=== PATIENT | female | born 1940 | race Two or more races ===

== ENCOUNTER 2017-11-15 12:03 | Outpatient (CLI) | payer OTHER ==
[~2017-11-15 12:03] MED LIST: ABILIFY2 MG; AVALIDE 150-12.1 TA1 PO; AVELOX ABC PAC400 MG; AZOR 10/20 MG T1 TAB; BACTROBAN OINT22 GM TP; CALAN SR120 MG PO; CARDURA1 MG PO; CRESTOR5 MG PO; LOPRESSOR25 MG; NAPROSYN125 MG/5 M; PREDNISONE20 MG; SINGULAIR 4MG4 MG PO; [UNRECOGNIZED DRUG - OTHER]
== END 2017-11-15 12:09 | disposition home or self-care (01) ==
LOC: RAD 12:03
DX: M12.9 Arthropathy, unspecified (principal); M19.90 Unspecified osteoarthritis, unspecified site

== ENCOUNTER → 2018-01-26 | Emergency (ER) | payer OTHER ==
[~2018-01-26] VITALS: Ht 147.3 cm; Wt 63.5 kg
== END | disposition home or self-care (01) ==
LOC: ER 12:11
DX: R42 Dizziness and giddiness (principal); R11.11 Vomiting without nausea

== ENCOUNTER 2018-06-17 07:22 | Emergency (ER) | payer OTHER ==
[~2018-06-17] VITALS: Ht 149.9 cm; Wt 65.8 kg
[2018-06-17] MEDS ORDERED: XANAX0.25 MG PO (07:39)
[2018-06-17] MEDS ORDERED: ZANTAC150 M3 PO (07:39)
[2018-06-17] MEDS ORDERED: AZOR 10-20 MG1 EACH PO (07:39)
[2018-06-17] MEDS ORDERED: ALDACTONE25 MG PO (07:39)
[2018-06-17] MEDS ORDERED: HYDROCHLOROTHIA25 MG PO (07:39)
[2018-06-17] MEDS ORDERED: CARDURA1 MG PO (07:40)
[2018-06-17] MEDS ORDERED: LEVAQUIN500 MG PO ×2 (13:15)
[2018-06-17] MEDS ORDERED: XOPENEX0.63 MG/3 IH (13:15)
[2018-06-17] MEDS ORDERED: TUSSI PRES-B L120 M1 PO (13:15)
== END 2018-06-17 13:23 | disposition home or self-care (01) ==
LOC: ER 07:22
DX: B34.9 Viral infection, unspecified (principal); R05 Cough

== ENCOUNTER 2018-11-29 08:59 | Inpatient (IN) | payer OTHER ==
[~2018-11-29] VITALS: Ht 157.5 cm; Wt 70.8 kg
[~2018-11-29 08:59] MED LIST changes: +ALDACTONE25 MG PO; +AZOR 10-20 MG1 EACH PO; +HYDROCHLOROTHIA25 MG PO; +LEVAQUIN500 MG PO; +TUSSI PRES-B L120 M1 PO; +XANAX0.25 MG PO; +XOPENEX0.63 MG/3 IH; +ZANTAC150 M3 PO
--- NOTE | 2018-11-29 10:11 | NUR ---
PTE EVALUADA POR LA DRA [place]. MS K MENDEZ ORIENTA SOBRE EL MISMO, LO CUAL REFIERE ENTENDER Y REALIZAPRUEBAS DE LABORATORIO Y ADMINISTRA MEDICAMENTOS MADHURI ORDEN MEDICA Y SIGUIENDO MEDIDAS ASEPTICAS.
--- NOTE | 2018-11-29 10:50 | NUR ---
SE COLOCA PTE EN MONITOR CARDIACO Y SE CONECTA AL MISMO, MADHURI ORDEN MEDICA.
== END 2018-12-03 07:42 | disposition home or self-care (01) | DRG 194 ==
LOC: ER 08:59 → MEDI 13:24 → MEDJ 13:24 → SEC-K 13:24 → MEDI 16:46 → MEDJ 11-30 17:29
PROVIDERS: ADMIT Internal Medicine Cardiovascular Disease
PROC: 3E0F7GC Introduction of Other Therapeutic Substance into Respiratory Tract, Via Natural or Artificial Opening (ICD-10-PCS; principal; 2018-11-29)
PROC: BW28ZZZ Computerized Tomography (CT Scan) of Head (ICD-10-PCS; 2018-11-29)
DX: J18.1 Lobar pneumonia, unspecified organism (principal); J45.901 Unspecified asthma with (acute) exacerbation; D72.828 Other elevated white blood cell count; R55 Syncope and collapse; G30.8 Other Alzheimer's disease; F02.80 Dementia in other diseases classified elsewhere, unspecified severity, without behavioral disturbance, psychotic disturbance, mood disturbance, and anxiety; J44.9 Chronic obstructive pulmonary disease, unspecified; E11.9 Type 2 diabetes mellitus without complications; I10 Essential (primary) hypertension; I25.10 Atherosclerotic heart disease of native coronary artery without angina pectoris; Z86.73 Personal history of transient ischemic attack (TIA), and cerebral infarction without residual deficits; Z88.0 Allergy status to penicillin

== ENCOUNTER 2019-01-02 09:45 | Outpatient (CLI) | payer OTHER | END 2019-01-02 09:51 | disposition home or self-care (01) | LOC: RAD 09:45 | DX: R05 Cough (principal) ==

== ENCOUNTER 2019-03-27 11:34 | Outpatient (CLI) | payer OTHER | END 2019-03-27 11:37 | disposition home or self-care (01) | LOC: MRI 11:34 | DX: T82.898A Other specified complication of vascular prosthetic devices, implants and grafts, initial encounter (principal) | CPT/HCPCS: 70551 ==

== ENCOUNTER → 2019-12-01 07:47 | Outpatient (CLI) | payer OTHER | END | disposition home or self-care (01) | LOC: LAB 07:47 | DX: R63.8 Other symptoms and signs concerning food and fluid intake (principal) ==

== ENCOUNTER → 2019-12-03 | Outpatient (CLI) | payer OTHER | END | disposition home or self-care (01) | LOC: MRI 09:38 | DX: I63.89 Other cerebral infarction (principal); R41.2 Retrograde amnesia | CPT/HCPCS: 70553; A9575 ==

== ENCOUNTER 2024-07-23 17:13 | Emergency (ER) | payer OTHER ==
[~2024-07-23] VITALS: Ht 165.1 cm; Wt 59.0 kg
[2024-07-23 17:26] VITALS: BP 179/66; O2SAT 97
[2024-07-23] MEDS ORDERED: NIFEDIPINE20 MG (17:31)
[2024-07-23] MEDS ORDERED: PEPCID AC20 MG (17:31)
[2024-07-23] MEDS ORDERED: KEPPRA500 MG (17:32)
[2024-07-23] MEDS ORDERED: SINGULAIR10 MG (17:32)
[2024-07-23] MEDS ORDERED: CHLORTHALIDONE25 MG (17:32)
[2024-07-23] MEDS ORDERED: BARIUM SULFATE 450 ML ORAL.SUSP PO ONE (17:33)
[2024-07-23] MEDS ORDERED: DIATRIZOATE MEGLUMINE, SODIUM 30 ML BOTTLE ONE (17:35)
== END 2024-07-23 21:26 | disposition home or self-care (01) ==
LOC: ER 17:13
DX: K94.23 Gastrostomy malfunction (principal); Z88.0 Allergy status to penicillin; Z91.013 Allergy to seafood
CPT/HCPCS: 74177; 99284; Q9965